=== PATIENT | female | born 1930 | race Caucasian/White ===

== ENCOUNTER 2018-10-03 09:00 | Outpatient (CLI) | payer MEDICARE ==
[2016-01-16 13:55] VITALS: BMI 27.4
[~2018-10-03 09:00] MED LIST: ALDACTAZIDE 25/1 TAB PO; CIPRO500 MG PO; FLAGYL500 MG PO
== END 2018-10-03 10:00 | disposition home or self-care (01) ==
LOC: D.MAMMO 09:00
PROVIDERS: ATTEND Family Medicine
DX: Z12.31 Encounter for screening mammogram for malignant neoplasm of breast (principal)

== ENCOUNTER 2020-11-07 17:50 | Emergency (ER) | payer MEDICARE ==
[~2020-11-07] VITALS: Ht 154.9 cm; Wt 68.2 kg
[2020-11-07 18:05] VITALS: Ht 154.9 cm; Wt 68.2 kg
[2020-11-07 19:12] LABS: BASOPHILS 0.4 % (0-2); EOSINOPHILS 1.8 % (0-7); HEMATOCRIT 36.7 % (36.0-48.0); HEMOGLOBIN 12.8 g/dL (12-16); IMMATURE GRANULOCYTES 0.3 % (0-5); LYMPHOCYTE ABS# 1.72 10x3/uL (1.18-3.74); LYMPHOCYTES 24.1 % (15-50); MCH 30.6 pg (26.0-34.0); MCHC 34.9 g/dL (31.0-37.0); MCV 87.8 fL (80.0-100.0); MEAN PLATELET VOLUME 11.7 fL (7.4-10.4); NEUTROPHIL ABS# 4.66 10x3/uL (1.56-6.13); NEUTROPHILS 65.4 % (40-80); PLATELET COUNT 201 10x3/uL (130-400); RBC 4.18 10x6/uL (4.00-5.40); RDW 15.3 % (11.5-14.5); WBC 7.1 10x3/uL (4.8-10.8)
[2020-11-07 19:26] LABS: APTT 36.1 SECONDS (22.8-39.4); CALC OSMOLALITY 270 mosm/kg (275-300); CALCIUM 9.2 mg/dL (8.5-10.1); CARBON DIOXIDE 22.7 mmol/L (21.0-32.0); CHLORIDE - SERUM 101 mmol/L (98-107); GLUCOSE 98 mg/dL (74-106); INR 1.85 (0.85-1.17); POTASSIUM - SERUM 4.5 mmol/L (3.5-5.1); PROTIME 19.8 SECONDS (11.6-15.0); SODIUM 134 mmol/L (136-145); UREA NITROGEN 21 mg/dL (7-18); eGFR NON AFRICAN AMERICAN 55 mL/min (90-120)
[2020-11-07 19:43] LABS: ALBUMIN 3.4 g/dL (3.4-5.0); ALKALINE PHOSPHATASE 42 U/L (30-120); ALT (SGPT) 39 U/L (10-68); BILIRUBIN - TOTAL 0.66 mg/dL (0.2-1.3); CKMB 1.2 U/L (0.0-3.6); CREATINE KINASE 37 UL (21-215); MAGNESIUM - SERUM 1.7 mg/dL (1.8-2.4); PROTEIN - SERUM 6.9 g/dL (6.4-8.2)
[2020-11-07 19:44] LABS: TROPONIN-I < 0.017 ng/mL (0.000-0.060)
[2020-11-07 20:12] VITALS: BP 132/71
== END 2020-11-07 20:12 | disposition home or self-care (01) ==
LOC: D.ER 17:50
PROVIDERS: Emergency Medicine
DX: I48.91 Unspecified atrial fibrillation (principal); F41.9 Anxiety disorder, unspecified; I10 Essential (primary) hypertension